=== PATIENT | male | born 1975 | race Caucasian/White ===

== ENCOUNTER → 2024-11-07 | Outpatient (CLI) | payer SELFPAY, OTHER ==
--- NOTE | 2024-11-07 12:33 | CT_ITS ---
PROCEDURE: LIMITED CHEST CT CARDIAC ONLY 11/07/2024 REASON FOR EXAM: DYSPNEA TECHNIQUE: LIMITED CHEST CT CARDIAC ONLY CONTRAST: Isovue 370 VOLUME: 100 mL One or more dose reduction techniques were used (e.g., Automated exposure control, adjustment of the mA and/or kV according to patient size, use of iterative reconstruction technique). RADIATION DOSE SUMMARY: CTDlvol: 56.66 mGy DLP: 1323.90 mGycm COMPARISON: None FINDINGS: No significant coronary artery calcification is seen. The heart is not enlarged. The lungs are clear. CT/Limited Chest CT Cardiac Only IMPRESSION: No coronary artery calcification seen. Reading Location: [place] [id number]
[2024-11-07 12:57] VITALS: BP 118/68; PULSE 67; RESP 16; TEMP 36.3; O2SAT 97; BMI 29.8
[2024-11-07 13:09] VITALS: BP 118/68; PULSE 67
[2024-11-07] MEDS: Nitroglycerin SL (ED/IMG/CATH) 0.4 MG TABLET SL (13:09)
[2024-11-07 13:15] VITALS: BP 112/66; PULSE 55; RESP 16; O2SAT 96
--- NOTE | 2024-11-10 17:04 | CCTA.WCONT ---
CCTA w/Cont Coronary Arteries Date of Study:: 11/07/24 sob Coronary Calcium Scoring: High-resolution Computed Tomographic imaging of the chest was performed on [11/07/24 ], with particular attention paid to the coronary arteries. Intravenous contrast agent was administered per protocol and images reconstructed and displayed. LEFT MAIN CORONARY ARTERY:Normal [] LEFT ANTERIOR DESCENDING CORONARY ARTERY: Arises from the left main coronary artery and courses towards the apex of the ventricle with no atherosclerotic plaquing noted. [] LEFT CIRCUMFLEX CORONARY ARTERY: Nondominant medium size vessel with no significant atherosclerotic plaque present. [] RIGHT CORONARY ARTERY: Dominant right coronary artery arising from the right coronary cusp and bifurcates to posterior descending artery and posterolateral vessel. No significant atherosclerotic plaquing is noted. [] THORACIC AORTA: Normal size [] PULMONARY ARTERY: [] LEFT ATRIUM/APPENDAGE: [] MITRAL VALVE: [] AORTIC VALVE: [] LEFT VENTRICLE: [] CORONARY CALCIUM SCORE:0 [] Findings Coronary Artery Left Main (LM): 0 Left Anterior Descending (LAD): 0 Left Circumflex (LCX): 0 Right Coronary Artery (RCA): 0 Total Agatston Score: 0 Percentile Rankin% Calcium Scoring Interpretation: Different methods to categorize the overall amount of coronary plaque. Overall amount CAC SIS Visual of coronary plaque P1 Mild -100 <2 1-2 vessels with mild amount of plaque P2 Moderate 101-300 3-4 1-2 vessels with moderate amount, 3 vessels with mild amount of plaque P3 Severe 301-999 5-7 3 vessels with moderate amount, 1 vessel with severe amount of plaque P4 Extensive >1000 >8 2-3 vessels with severe amount of plaque Conclusion: Normal CT angiogram with no atherosclerotic plaquing, coronary calcium score of 0.
== END | disposition home or self-care (01) ==
PROVIDERS: PCP Family Medicine; Referring Provider Internal Medicine Cardiovascular Disease; Visit Provider Internal Medicine Cardiovascular Disease
DX: R06.00 Dyspnea, unspecified (principal)
CPT/HCPCS: 75571; 75574; 76380; Q9967